=== PATIENT | female | born 1950 | race Caucasian/White ===

== ENCOUNTER 2022-06-01 08:56 | Outpatient (CLI) | payer MEDICARE, OTHER, SELFPAY ==
--- NOTE | 2022-06-01 09:15 | MR_ITS ---
[facility] [address] [facility] [address] Phone:?[phone] Fax:?[phone] Referring Physician Information: Carito Rasmussen M.D. [address] [facility] [address] Phone:?[phone] Fax:?[phone] Patient:?Kelley Santizo D.O.B:?1950 Sex:?Female Phone:?[phone] [facility] MRN:?[id number] Exam Date:?05/31/2020 ? EXAM: MR ABDOMEN WITHOUT AND WITH CONTRAST CLINICAL INFORMATION: BRCA2 mutation. Evaluate pancreas. TECHNICAL INFORMATION: Multiplanar, multiphasic T1/T2 MR images of the abdomen completed prior to and following intravenous contrast administration (15 mL Dotarem) COMPARISON: None. INTERPRETATION: MR evaluation of the pancreas demonstrates uniform contrast enhancement without evidence of pancreatic mass or duct dilatation. No biliary duct dilatation is identified. The gallbladder is normal in appearance. Benign cyst left lobe of liver. No additional liver lesion. Benign right mid pole renal cyst. No additional renal lesion is identified. The adrenal glands, spleen and visualized GI tract are unremarkable. Normal caliber abdominal aorta. No mesenteric or retroperitoneal adenopathy. CONCLUSION: 1. Normal MR exam of the pancreas. Benign liver and right renal cysts. No additional acute MR abnormality of the abdomen is identified. Electronically signed on 05/31/2020 1:26:00 PM by Jouse Chang M.D.
== END 2022-06-01 08:57 | disposition home or self-care (01) ==
LOC: MRI 08:59
PROVIDERS: PCP Family Medicine; Visit Provider Internal Medicine Hematology & Oncology
DX: Z15.01 Genetic susceptibility to malignant neoplasm of breast (principal); Z15.09 Genetic susceptibility to other malignant neoplasm; N28.1 Cyst of kidney, acquired; K76.89 Other specified diseases of liver
CPT/HCPCS: 74183; A9575

== ENCOUNTER 2022-09-18 09:51 | Outpatient (CLI) | payer MEDICARE, OTHER, SELFPAY ==
--- NOTE | 2022-09-18 10:15 | CRLHL7_ITS ---
For Patients: As a result of the Century Cures Act, medical imaging exams and procedure reports are released immediately into your electronic medical record. You may view this report before your referring provider. If you have questions, please contact your health care provider. BILATERAL SCREENING MAMMOGRAM WITH COMPUTER-AIDED DETECTION AND TOMOSYNTHESIS TECHNIQUE: CC and MLO views were obtained. These mammographic images have been obtained using full-field digital technique. These mammographic images were interpreted with the benefit of computer-aided detection. Breast Tomosynthesis was used in this interpretation. COMPARISON FILM: 06/20/21, 03/18/20, 03/12/19. FINDINGS: The breasts are heterogeneously dense, which may obscure small masses IMPRESSION: There is no radiographic evidence for malignancy. ASSESSMENT: BI-RADS Category 1: Negative RECOMMENDATION: Routine screening mammogram in 1 year. A lay language report of this examination will be provided to the patient. Simon Lucero M.D. Diagnostic Radiologist [email or web address] NEO/Dictated by: Simon Lucero MD @ 09/18/2022 10:55:00 AM (Electronically Signed)
== END 2022-09-18 09:52 | disposition home or self-care (01) ==
PROVIDERS: PCP Family Medicine; Visit Provider Family Medicine
DX: Z12.31 Encounter for screening mammogram for malignant neoplasm of breast (principal); R92.2 Inconclusive mammogram
CPT/HCPCS: 77063; 77067

== ENCOUNTER 2023-04-16 08:06 | Outpatient (CLI) | payer MEDICARE, OTHER, SELFPAY ==
--- NOTE | 2023-04-16 08:15 | CRLHL7_ITS ---
For Patients: As a result of the Century Cures Act, medical imaging exams and procedure reports are released immediately into your electronic medical record. You may view this report before your referring provider. If you have questions, please contact your health care provider. 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 No current breast related concerns. INDICATION FOR BREAST MRI: High-risk screening breast MRI. COMPARISON STUDIES: Mammograms of 09/18/2022 and 06/20/2021; breast MRI 01/09/2022. CONTRAST: 19 mL Dotarem. TECHNIQUE: The patient was positioned prone using a breast coil. Multiple imaging sequences were obtained using 1-1.5 mm thick slices with no gap. The image sequences include T2-weighted STIR in the axial plane, T1-weighted nonfat-saturated gradient echo in the axial plane, pre- and post-contrast T1-weighted FLASH 3D with fat suppression in the axial plane, and T1-weighted FLASH high resolution 3D with fat suppression in the sagittal plane. Image post-processing was performed on a [employer] workstation. Complex 3D rendering including maximum intensity projections (MIPS) and volumetric renderings were obtained to optimize visualization of the extent of pathology and relationship to the nipple, skin, and chest wall. This aids in determining feasibility of breast conservation surgery. Subtraction, multiplanar reconstruction, mean curve determination, and angiogenesis mapping were also performed. The study was technically adequate. FINDINGS: Amount of Fibroglandular Tissue: Scattered fibroglandular tissue. Breast Background Enhancement: Mild. RIGHT Breast: There is no suspicious mass or enhancement within the breast. LEFT Breast: There is no suspicious mass or enhancement within the breast. Lymph Nodes: No abnormal morphology lymph nodes. IMPRESSIONS AND RECOMMENDATIONS: 1. No MRI evidence of malignancy in either breast. 2. Annual screening mammography is recommended. If clinically indicated, continued screening breast MRI may also be performed, staggered at six-month intervals with screening mammography. BI-RADS Category 1: Negative Dictated by Nathalie Zelaya MD @ 04/17/2023 4:15:11 PM/marcelo NEO/Dictated by: Nathalie Zelaya MD @ 04/17/2023 4:15:00 PM (Electronically Signed)
== END 2023-04-16 08:07 | disposition home or self-care (01) ==
PROVIDERS: PCP Family Medicine; Visit Provider Internal Medicine Hematology & Oncology
DX: Z13.29 Encounter for screening for other suspected endocrine disorder (principal); R92.333 Mammographic heterogeneous density, bilateral breasts; Z15.01 Genetic susceptibility to malignant neoplasm of breast; Z15.09 Genetic susceptibility to other malignant neoplasm; N64.89 Other specified disorders of breast
CPT/HCPCS: 77049; A9575

== ENCOUNTER 2023-05-31 08:50 | Outpatient (RCR) | payer MEDICARE, OTHER, SELFPAY ==
--- NOTE | 2023-07-03 09:57 | ONC.NURNOTE ---
MRI reviewed by Jennifer Jimenez PA-C, per Jennifer, no evidence of malignancy. Plan is to follow up in November as previously planned. Left message for pt to call back for results.
== END 2023-11-27 23:59 | disposition home or self-care (01) ==
LOC: CCIC 08:50
PROVIDERS: PCP Family Medicine; Visit Provider Physician Assistant
DX: Z71.89 Other specified counseling (principal); Z15.01 Genetic susceptibility to malignant neoplasm of breast; Z80.3 Family history of malignant neoplasm of breast; Z85.850 Personal history of malignant neoplasm of thyroid
CPT/HCPCS: 99213; 99214

== ENCOUNTER 2023-06-27 07:56 | Outpatient (CLI) | payer MEDICARE, OTHER, SELFPAY ==
--- NOTE | 2023-06-27 08:15 | CRLHL7_ITS ---
For Patients: As a result of the Century Cures Act, medical imaging exams and procedure reports are released immediately into your electronic medical record. You may view this report before your referring provider. If you have questions, please contact your health care provider. INDICATION: BRCA2 gene mutation. Evaluate the pancreas. COMPARISON: Abdominal MRIs dated 01 June 2022 and 08 June 2021. TECHNIQUE: Abdominal MRI with T1 in- and out of phase, T2, diffusion weighted, and progressively delayed post-contrast images. Intravenous gadolinium administered. FINDINGS: No fatty infiltration of the liver. 1.8 cm cyst in segment 4 of the liver. The no other focal abnormalities identified in the visualized portions of the liver, spleen, and adrenal glands. Normal appearance of the pancreas. No focal pancreatic lesions. 3.2 cm cyst extending off the superior pole of the right kidney. The kidneys are otherwise unremarkable. No hydronephrosis. No adenopathy. Impression : 1. No abnormalities of the pancreas identified. 2. No acute abnormalities of the abdomen. Dictated by Reddy Marmolejo MD @ 06/30/2023 9:52:10 AM (Electronically Signed)
== END 2023-06-27 07:57 | disposition home or self-care (01) ==
LOC: MRI 07:56
PROVIDERS: PCP Family Medicine; Visit Provider Physician Assistant
DX: Z15.01 Genetic susceptibility to malignant neoplasm of breast (principal); N28.1 Cyst of kidney, acquired; K76.89 Other specified diseases of liver; Z15.09 Genetic susceptibility to other malignant neoplasm
CPT/HCPCS: 74183; A9575

== ENCOUNTER 2023-11-07 13:03 | Outpatient (CLI) | payer MEDICARE, OTHER, SELFPAY ==
--- NOTE | 2023-11-07 13:20 | MM_ITS ---
Patient: PETROS BAKER Facility:?[facility] Patient ID:?[id number] Site Patient ID:?[id number]. Site :?1950 Study:?XRay-Breast Bilateral 3D W/CAD-11/07/2023 1:58:40 PM Ordering Physician:Carito Almonte Final Report: BILATERAL SCREENING MAMMOGRAM WITH COMPUTER-AIDED DETECTION AND TOMOSYNTHESIS TECHNIQUE: CC and MLO views were obtained. These mammographic images have been obtained using full-field digital technique. These mammographic images were interpreted with the benefit of computer-aided detection. Breast Tomosynthesis was used in this interpretation. COMPARISON FILM: 09/18/22, 06/20/21, 04/14/20. FINDINGS: There are scattered areas of fibroglandular density. IMPRESSION: There is no radiographic evidence for malignancy. ASSESSMENT: BI-RADS Category 2: Benign RECOMMENDATION: Routine screening mammogram in 1 year. A lay language report of this examination will be provided to the patient. Simon Lucero M.D. Diagnostic Radiologist [email or web address] DSM/sp R& Transcribed: 7:01 p.m. SP/Dictated by: Simno Lucero MD @ 11/08/2023 12:39:00 PM Signed by:Malik Lucero MD @11/09/2023 11:26:42 AM (Electronic Signature)
== END 2023-11-07 13:04 | disposition home or self-care (01) ==
LOC: MAMMO 13:05
PROVIDERS: PCP Family Medicine; Visit Provider Internal Medicine Hematology & Oncology
DX: Z12.31 Encounter for screening mammogram for malignant neoplasm of breast (principal)
CPT/HCPCS: 77063; 77067

== ENCOUNTER 2024-04-28 08:43 | Outpatient (RCR) | payer MEDICARE, OTHER, SELFPAY ==
--- NOTE | 2024-04-11 15:46 | ONC.NURNOTE ---
Patient is due for her high risk breast cancer screening MRI in April. Patient is overdue for oncology follow up. Message left for patient requesting return call to schedule oncology follow up. After her follow up appointment, we will determine if the plan is to continue annual breast MRIs.
== END 2024-10-25 23:59 | disposition home or self-care (01) ==
LOC: CCIC 08:43
PROVIDERS: PCP Family Medicine; Visit Provider Physician Assistant
DX: Z71.89 Other specified counseling (principal); Z15.01 Genetic susceptibility to malignant neoplasm of breast; Z70.3 Counseling related to combined concerns regarding sexual attitude, behavior and orientation
CPT/HCPCS: 99213; G0463

== ENCOUNTER 2024-05-29 09:58 | Outpatient (CLI) | payer MEDICARE, OTHER, SELFPAY ==
--- NOTE | 2024-05-29 10:15 | CRLHL7_ITS ---
For Patients: As a result of the 21st Century Cures Act, medical imaging exams and procedure reports are released immediately into your electronic medical record. You may view this report before your referring provider. If you have questions, please contact your health care provider. BILATERAL BREAST MRI WITHOUT AND WITH GADOLINIUM CLINICAL HISTORY: Carrier of the BRCA 2 gene mutation at increased risk for breast cancer. Family history of breast cancer in her mother diagnosed at age 53 and sister at age 65. No current breast related concerns. INDICATION FOR BREAST MRI: High-risk screening breast MRI. COMPARISON STUDIES: Breast MRIs 04/16/2023 and 01/09/2022; mammograms 11/07/2023 and 09/18/2022. CONTRAST: 23 mL Dotarem. TECHNIQUE: The patient was positioned prone using a breast coil. Multiple imaging sequences were obtained using 1-1.5 mm thick slices with no gap. The image sequences include T2-weighted STIR in the axial plane, T1-weighted nonfat-saturated gradient echo in the axial plane, pre- and post-contrast T1-weighted FLASH 3D with fat suppression in the axial plane, and T1-weighted FLASH high resolution 3D with fat suppression in the sagittal plane. Image post-processing was performed on a [employer] workstation. Complex 3D rendering including maximum intensity projections (MIPS) and volumetric renderings were obtained to optimize visualization of the extent of pathology and relationship to the nipple, skin, and chest wall. This aids in determining feasibility of breast conservation surgery. Subtraction, multiplanar reconstruction, mean curve determination, and angiogenesis mapping were also performed. The study was technically adequate. FINDINGS: Amount of Fibroglandular Tissue: Scattered fibroglandular tissue. Breast Background Enhancement: Mild. RIGHT Breast: There is no suspicious mass or non-mass enhancement. LEFT Breast: Is no suspicious mass or non-mass enhancement. Lymph Nodes: No abnormal morphology lymph nodes. Other Findings: There is an unchanged 1.7 cm benign cyst in the left lobe of the liver. IMPRESSIONS AND RECOMMENDATIONS: 1. No MRI evidence of malignancy in either breast. 2. Annual screening mammography is recommended. If clinically indicated, continued screening breast MRI may also be performed, staggered at six-month intervals with screening mammography. BI-RADS Category 1: Negative Dictated by Nathalie Zelaya MD @ 06/02/2024 9:03:32 AM/CRL:emile SOLORZANO/Dictated by: Nathalie Zelaya MD @ 06/02/2024 9:06:00 AM (Electronically Signed)
== END 2024-05-29 09:59 | disposition home or self-care (01) ==
LOC: MRI 09:59
PROVIDERS: PCP Family Medicine; Visit Provider Physician Assistant
DX: Z12.31 Encounter for screening mammogram for malignant neoplasm of breast (principal); Z15.09 Genetic susceptibility to other malignant neoplasm; Z80.3 Family history of malignant neoplasm of breast; Z15.01 Genetic susceptibility to malignant neoplasm of breast
CPT/HCPCS: 77049; C8908; C8937; A9575

== ENCOUNTER 2024-12-12 07:27 | Outpatient (CLI) | payer MEDICARE, SELFPAY ==
--- NOTE | 2024-12-12 07:45 | CRLHL7_ITS ---
For Patients: As a result of the Cures Act, medical imaging exams and procedure reports are released immediately into your electronic medical record. You may view this report before your referring provider. If you have questions, please contact your health care provider. DIGITAL DIAGNOSTIC LEFT MAMMOGRAM USING TOMOSYNTHESIS AND COMPUTER-AIDED DETECTION LEFT BREAST ULTRASOUND CLINICAL HISTORY: LEFT breast mass/asymmetry. COMPARISON: 11/07/2024, 11/07/2023, 09/18/2022. TECHNIQUE: Digital LEFT mammogram in three projections with computer-aided detection. Tomosynthesis was used in this interpretation. Real-time ultrasound imaging of LEFT breast with imaging documentation. Scanning was performed by both the technologist and the radiologist. BREAST COMPOSITION: The breasts are heterogeneously dense, which may obscure small masses. FINDINGS: 3D XCCL, 3D CC and 3D true lateral LEFT breast mammogram images submitted. No suspicious masses or architectural distortion. Benign calcifications. No adenopathy. Targeted LEFT breast ultrasound performed to 4 o`clock 4-6 cm from the nipple. Small cysts are present measuring less than 1 cm. Areas of dense fibroglandular tissue also noted. No suspicious mass. No shadowing lesion. IMPRESSION: No evidence of malignancy. RECOMMENDATIONS: Routine screening mammography. A lay language report of this examination will be provided to the patient. BI-RADS Category 2: Benign Dictated by Simon Lucero MD @ 12/12/2024 9:14:41 AM jj/Dictated by: Simon Lucero MD @ 12/12/2024 9:14:00 AM (Electronically Signed)
--- NOTE | 2024-12-12 08:15 | CRLHL7_ITS ---
For Patients: As a result of the Cures Act, medical imaging exams and procedure reports are released immediately into your electronic medical record. You may view this report before your referring provider. If you have questions, please contact your health care provider. SEE DIGITAL DIAGNOSTIC LEFT MAMMOGRAM PERFORMED SAME DAY CRL:humberto paul/Dictated by: Simon Lucero MD @ 12/12/2024 9:12:00 AM (Electronically Signed)
== END 2024-12-12 07:28 | disposition home or self-care (01) ==
LOC: MAMMO 07:30
PROVIDERS: PCP Family Medicine; Visit Provider Family Medicine
DX: N63.20 Unspecified lump in the left breast, unspecified quadrant (principal); R92.8 Other abnormal and inconclusive findings on diagnostic imaging of breast; R92.333 Mammographic heterogeneous density, bilateral breasts
CPT/HCPCS: 76642; 77065; G0279

== ENCOUNTER 2024-12-17 08:12 | Outpatient (RCR) | payer MEDICARE, SELFPAY | END 2025-06-15 23:59 | disposition home or self-care (01) | LOC: CCIC 08:12 | PROVIDERS: PCP Family Medicine; Visit Provider Internal Medicine Hematology & Oncology | DX: Z71.89 Other specified counseling (principal); Z15.01 Genetic susceptibility to malignant neoplasm of breast; Z15.09 Genetic susceptibility to other malignant neoplasm; Z80.3 Family history of malignant neoplasm of breast; E66.9 Obesity, unspecified; Z68.41 Body mass index [BMI] 40.0-44.9, adult; L40.9 Psoriasis, unspecified; Z85.850 Personal history of malignant neoplasm of thyroid | CPT/HCPCS: 99214; G0463 ==

== ENCOUNTER 2025-07-03 09:00 | Outpatient (CLI) | payer MEDICARE, SELFPAY ==
--- NOTE | 2025-07-03 09:15 | CRLHL7_ITS ---
For Patients: As a result of the 21st Century Cures Act, medical imaging exams and procedure reports are released immediately into your electronic medical record. You may view this report before your referring provider. If you have questions, please contact your health care provider. BILATERAL BREAST MRI WITHOUT AND WITH GADOLINIUM, CLINICAL HISTORY: High-risk screening. Patient is a carrier of the BRCA2 gene mutation. INDICATION FOR BREAST MRI: Screening breast MRI in this high-risk woman. COMPARISON STUDIES: Mammogram 12/12/2024. MRI 05/29/2024. CONTRAST: 23 cc Dotarem. TECHNIQUE: The patient was positioned prone using a breast coil. Multiple imaging sequences were obtained using 1-1.5 mm thick slices with no gap. The image sequences include T2-weighted STIR in the axial plane, T1-weighted nonfat-saturated gradient echo in the axial plane, pre- and post-contrast T1-weighted FLASH 3D with fat suppression in the axial plane, and T1-weighted FLASH high-resolution 3D with fat suppression in the sagittal plane. Image post-processing was performed on a [employer] workstation. Complex 3D rendering including maximum intensity projections (MIPS) and volumetric renderings were obtained to optimize visualization of the extent of pathology and relationship to the nipple, skin, and chest wall. This aids in determining feasibility of breast conservation surgery. Subtraction, multiplanar reconstruction, mean curve determination, and angiogenesis mapping were also performed. The study was technically adequate. FINDINGS: Amount of Fibroglandular Tissue: Heterogeneous fibroglandular tissue. Breast Background Enhancement: Minimal. RIGHT and LEFT Breast: No suspicious enhancement in either breast. Lymph Nodes: No morphologically abnormal axillary lymph nodes. Other Findings: There is a lesion in the dome of the liver that is bright on T2 weighted sequences and does not appear to enhance most likely reflecting a cyst. IMPRESSIONS AND RECOMMENDATIONS: No MRI findings for malignancy in either breast. No morphologically abnormal axillary lymph nodes. Recommend the patient continue with yearly screening mammography and alternating at six month intervals with the screening mammograms. BI-RADS: BI-RADS Category 2: Benign Ashley Marmolejo M.D. Diagnostic/Breast Radiologist [email or web address] Transcribed: 2:36 pm DW/Dictated by: Ashley Marmolejo MD @ 07/07/2025 12:29:00 PM (Electronically Signed)
== END 2025-07-03 09:01 | disposition home or self-care (01) ==
LOC: MRI 09:01
PROVIDERS: PCP Family Medicine; Visit Provider Internal Medicine Hematology & Oncology
DX: Z12.39 Encounter for other screening for malignant neoplasm of breast (principal); Z15.01 Genetic susceptibility to malignant neoplasm of breast
CPT/HCPCS: 77049; A9575